=== PATIENT | female | born 1985 | race American Indian/Alaskan Native ===

== ENCOUNTER 2016-09-26 15:01 | Emergency (ER) | payer MEDICAID, OTHER ==
[2016-09-26 15:52] VITALS: BP 117/72
--- NOTE | 2016-09-26 16:31 | Emergency Department Report ---
Chief Complaint: Abdominal Pain Stated Complaint: ABDOMINAL PAIN (12WKS PREG) Time Seen by Provider: 09/26/16 16:28 - HPI History of Present Illness: She is a 31-year-old female presents to the ED complaining of low pelvic cramping. Patient states last menstrual period was 07/06/2016. Patient states she took a home test and believes she is . She denies fevers/ chills/nausea/vomiting/vaginal bleeding or discharge - ROS Review of Systems: As noted in HPI - Exam Vital Signs: Vital Signs 09/26/16 15:48 Temperature 98.4 F Pulse Rate 84 Respiratory 20 Rate Blood Pressure 117/72 O2 Sat by Pulse 100 Oximetry Physical Exam: GENERAL: Alert and oriented x3, no apparent distress, Normal Gait, atraumatic. ABDOMEN: No organomegaly was noted,Positive bowel sounds, soft, and non- distended. Mild tenderness to palpation of the right lower pelvic region. Nontender to palpation on all Quadrants, NO CVA tenderness. SKIN: Warm and dry, No lesions, No ulceration or induration present. MSE screening note: Focused history and physical exam performed. Due to findings the following was ordered: ED Medical Decision Making - Lab Data Result diagrams: 09/26/16 16:39 09/26/16 16:39 - Medical Decision Making Labs ordered. Ultrasound ordered. Patient to be seen by fast track provider. ED Disposition for MSE Condition: Stable Instructions: Abdominal Pain (ED)
[2016-09-26 17:10] LABS: Basophils % (Auto) 0.1 % (0.0-1.8); Hematocrit 38.1 % (30.3-42.9); Hemoglobin 12.7 gm/dl (10.1-14.3); Mean Corpuscular HGB Conc 33 % (30-34); Mean Corpuscular Hemoglobin 30 pg (28-32); Mean Corpuscular Volume 90 fl (79-97); Platelet Count 262 K/mm3 (140-440); Red Blood Count 4.23 M/mm3 (3.65-5.03); Red Cell Distribution Width 13.5 % (13.2-15.2); White Blood Count 9.9 K/mm3 (4.5-11.0)
[2016-09-26 17:20] LABS: Anion Gap 18 mmol/L; Blood Urea Nitrogen 12 mg/dL (7-17); Calcium 9.9 mg/dL (8.4-10.2); Carbon Dioxide 23 mmol/L (22-30); Chloride 96.8 mmol/L (98-107); Glucose 93 mg/dL (65-100); Potassium 4.1 mmol/L (3.6-5.0); Sodium 134 mmol/L (137-145)
--- NOTE | 2016-09-26 19:02 | Ultrasound Report ---
FINAL REPORT PROCEDURE: US OB \T\lt; = 14 WEEKS FETUS TECHNIQUE: Real-time transabdominal sonography of the uterus, placenta, amniotic fluid, adnexa, and fetus was performed with image documentation. Measurements were obtained to determine age/size. M-mode Doppler was used to document heartbeat. CPT 39666 HISTORY: Pelvic pain COMPARISON: No prior studies are available for comparison. FINDINGS: CRL: 65 mm, which corresponds to a gestational age of: 12 weeks, 6 days. Embryonic Cardiac Activity: 165 beats per minute Gestational Sac: Normal. Amniotic fluid: Normal. Cervix: Not well-visualized Right Ovary: Normal. Left Ovary: Normal. Estimated delivery date: 04/04/2017 IMPRESSION: Single live intrauterine gestation at approximately 12 weeks 6 days. EDC by US 04/04/2017
[2016-09-26 20:33] LABS: Alanine Aminotransferase 9 units/L (7-56); Albumin 4.3 g/dL (3.9-5); Albumin/Globulin Ratio 1.1 %; Alkaline Phosphatase 42 units/L (35-129); Amylase 129 units/L (27-131); Lipase 22 units/L (13-60); Total Protein 8.2 g/dL (6.3-8.2)
[2016-09-26 20:34] LABS: Bilirubin,Direct < 0.2 mg/dL (0-0.2); Bilirubin,Indirect 0.2 mg/dL
--- NOTE | 2016-09-26 20:50 | Emergency Department Report ---
ED Abdominal Pain HPI - General Chief Complaint: Abdominal Pain Stated Complaint: ABDOMINAL PAIN (12WKS PREG) Time Seen by Provider: 09/26/16 16:28 Source: patient Mode of arrival: Ambulatory Limitations: No Limitations - History of Present Illness Initial Comments: This is a 31-year-old female well-nourished with nontoxic or ill in appearance the patient to the ED complaining of 2 days. Patient stated she is to weeks . . Patient describes as intermittent with a level of a 7 out of 10. Patient denies any vaginal bleeding, pelvic pain, discharge, polyuria, dysuria, urgency, nausea, vomiting, chest pain, shortness of breath, diarrhea, constipation, fever, chills, stiff neck, headache, blurry vision. Patient denies any allergies. Last menstrual period 07/06/69. Denies Past medical history. Patient stated has her first appointment with her drawer in plain loom ([facility]) tomorrow. MD Complaint: other (abdominal cramping) -: Gradual, days(s) (2) Location: diffuse Radiation: none Severity: mild Severity scale (0 -10): 7 Quality: cramping Consistency: intermittent Improves With: nothing Worsens With: nothing Associated Symptoms: denies other symptoms. denies: nausea, vomiting, diarrhea , fever, chills, constipation, dysuria, hematemesis, hematochezia, melena, hematuria, anorexia, syncope - Related Data LMP Date: 07/06/16 Previous Rx's Medication Instructions Recorded Last Taken Type metroNIDAZOLE [Flagyl] 500 mg PO Q12HR 7 Days 09/26/16 Unknown Rx Allergies Allergy/AdvReac Type Severity Reaction Status Date / Time No Known Allergies Allergy Unverified 09/26/16 15:52 ED Review of Systems ROS: Stated complaint: ABDOMINAL PAIN (12WKS PREG) Other details as noted in HPI Constitutional: denies: chills, fever Eyes: denies: eye pain, eye discharge, vision change ENT: denies: ear pain, throat pain Respiratory: denies: cough, shortness of breath, wheezing Cardiovascular: denies: chest pain, palpitations Endocrine: no symptoms reported Gastrointestinal: denies: abdominal pain, nausea, diarrhea Genitourinary: denies: urgency, dysuria, discharge Musculoskeletal: denies: back pain, joint swelling, arthralgia Skin: denies: rash, lesions Neurological: denies: headache, weakness, paresthesias Psychiatric: denies: anxiety, depression Hematological/Lymphatic: denies: easy bleeding, easy bruising ED Past Medical Hx - Past Medical History Previous Medical History?: No - Surgical History Past Surgical History?: No - Social History Smoking Status: Former Smoker Substance Use Type: None - Medications Home Medications: Home Medications Medication Instructions Recorded Confirmed Last Taken Type metroNIDAZOLE [Flagyl] 500 mg PO Q12HR 7 Days 09/26/16 Unknown Rx ED Physical Exam - General Limitations: No Limitations General appearance: alert, in no apparent distress - Head Head exam: Present: atraumatic, normocephalic, normal inspection - Eye Eye exam: Present: normal appearance, PERRL, EOMI. Absent: scleral icterus, conjunctival injection, nystagmus, periorbital swelling, periorbital tenderness Pupils: Present: normal accommodation - ENT ENT exam: Present: normal exam, normal orophraynx, mucous membranes moist, TM's normal bilaterally, normal external ear exam - Neck Neck exam: Present: normal inspection, full ROM. Absent: tenderness, meningismus, lymphadenopathy, thyromegaly - Respiratory Respiratory exam: Present: normal lung sounds bilaterally. Absent: respiratory distress, wheezes, rales, rhonchi, stridor, chest wall tenderness, accessory muscle use, decreased breath sounds, prolonged expiratory - Cardiovascular Cardiovascular Exam: Present: regular rate, normal rhythm, normal heart sounds. Absent: bradycardia, tachycardia, irregular rhythm, systolic murmur, diastolic murmur, rubs, gallop - GI/Abdominal GI/Abdominal exam: Present: soft, normal bowel sounds. Absent: distended, tenderness, guarding, rebound, rigid, diminished bowel sounds, organomegaly - Expanded GI/Abdominal Exam Expanded GI/Abdominal exam: Absent: psoas sign, obturator sign, heel tap sign, Oden's sign, Rovsing's sign, tenderness at Mcburney's Point, ascites - Rectal Rectal exam: Present: deferred, normal rectal tone (as per patient) - External exam: Present: normal external exam, other (stationary fireman present during exam). Absent: erythema, swelling, lesions, lacerations, ecchymosis, bleeding Speculum exam: Present: normal speculum exam, other (OS closed. Geophysical Support Specialist present during exam.). Absent: erythema, vaginal discharge, cervical discharge , vaginal bleeding, foreign body, tissue, laceration Bi-manual exam: Present: normal bi-manual exam. Absent: cervical motion tendernes, adnexal tenderness, adnexal mass, uterine enlargement, uterine tenderness - Extremities Exam Extremities exam: Present: normal inspection, full ROM, normal capillary refill. Absent: tenderness, pedal edema, joint swelling, calf tenderness - Back Exam Back exam: Present: normal inspection, full ROM. Absent: tenderness, CVA tenderness (R), CVA tenderness (L), muscle spasm, paraspinal tenderness, vertebral tenderness, rash noted - Neurological Exam Neurological exam: Present: alert, oriented X3, CN II-XII intact, normal gait, reflexes normal - Psychiatric Psychiatric exam: Present: normal affect, normal mood - Skin Skin exam: Present: warm, dry, intact, normal color. Absent: rash ED Course Vital Signs 09/26/16 15:48 Temperature 98.4 F Pulse Rate 84 Respiratory 20 Rate Blood Pressure 117/72 O2 Sat by Pulse 100 Oximetry - Reevaluation(s) Reevaluation #1: 09/26/16 20:52 Patient is resting comfortably with no signs of distress noted. ED Medical Decision Making - Lab Data Result diagrams: 09/26/16 16:39 09/26/16 16:39 - Medical Decision Making ED course; this is a 31-year-old female that presents with intermittent abdominal cramping 1- patient was examined by myself. Upon exam of cervix OS is closed with no signs of vaginal bleeding or cervical bleeding. No discharge. 2- ultrasound has been obtained. Dictated by Dr. Carrizales. Impression; single live intrauterine gestation at approximately 12 weeks 6 days. Estimated date by ultrasound . 165 bpm for heart rate. 3- patient was notified of the results of ultrasound. With no further questions noted. 4- patient was instructed to follow-up with her FILLER SHREDDER MACHINE that she has appointment for tomorrow or if symptoms such as vaginal bleeding, abdominal pain, nausea or vomiting, Chest pain, or shortness of breathe returns emergency room as was possible. 5- at time time of discharge, the patient does not seem toxic or ill in appearance. No acute signs of distress noted. Patient agrees to discharge treatment plan of care. No further questions noted by the patient. 6- a wet prep and Chlamydia/gonorrhea has been obtained and sent to lab. 7- blood prep indicates pectoral vaginosis. Patient received Flagyl for 7 days Critical care attestation.: If time is entered above; I have spent that time in minutes in the direct care of this critically ill patient, excluding procedure time. ED Disposition Clinical Impression: Abdominal cramping, Bacterial vaginosis Qualifiers: Weeks of gestation: 12 weeks Qualified Code(s): Z3A.12 - 12 weeks gestation of Disposition: - TO HOME OR SELFCARE Is pt being admited?: No Does the pt Need Aspirin: No Condition: Stable Instructions: (ED), Abdominal Pain in (ED), Bacterial Vaginosis (ED) Additional Instructions: Follow-up with your FILLER SHREDDER MACHINE that she has appointment for tomorrow or if symptoms such as vaginal bleeding, abdominal pain, nausea or vomiting, Chest pain, or shortness of breathe returns emergency room as was possible. Follow-up with medical records in 5 days to obtain results of gonorrhea/ chlamydia Finish full course of antibiotics as prescribed Prescriptions: metroNIDAZOLE [Flagyl] 500 mg PO Q12HR 7 Days Referrals: PRIMARY CAREMD [Primary Care Provider] - 24 Hours [facility] [Outside] - 3-5 Days [facility] [Outside] - 3-5 Days [facility] [Provider Group] - 3-5 Days DIA GOETZ MD [Staff Physician] - 24 Hours Forms: Work/School Release Form(ED), STI Treatment and Prevention
== END 2016-09-26 22:37 | disposition home or self-care (01) ==
LOC: ED 15:01
DX: O23.591 Infection of other part of genital tract in pregnancy, first trimester (principal); N76.0 Acute vaginitis; O99.331 Smoking (tobacco) complicating pregnancy, first trimester; Z3A.12 12 weeks gestation of pregnancy
CPT/HCPCS: 36415; 76801; 80048; 80074; 82150; 83690; 84702; 84703; 85025; 87210; 87591

== ENCOUNTER 2018-12-30 21:24 | Emergency (ER) | payer MEDICAID, OTHER ==
[2018-12-31] MEDS ORDERED: TORADOL IM ONE (01:04)
[2018-12-31 02:18] LABS: Basophils % (Auto) 0.2 % (0.0-1.8); Eosinophils # (Auto) 0.5 K/mm3 (0.0-0.4); Eosinophils % (Auto) 5.9 % (0.0-4.3); Hematocrit 37.3 % (30.3-42.9); Hemoglobin 12.6 gm/dl (10.1-14.3); Lymphocytes # (Auto) 3.7 K/mm3 (1.2-5.4); Lymphocytes % (Auto) 43.7 % (13.4-35.0); Mean Corpuscular HGB Conc 34 % (30-34); Mean Corpuscular Volume 89 fl (79-97); Monocytes # (Auto) 0.6 K/mm3 (0.0-0.8); Monocytes % (Auto) 6.8 % (0.0-7.3); Platelet Count 300 K/mm3 (140-440); Red Cell Distribution Width 13.1 % (13.2-15.2)
[2018-12-31 02:32] LABS: Alanine Aminotransferase 11 units/L (7-56); Albumin 3.7 g/dL (3.9-5); BUN/Creatinine Ratio 28; Blood Urea Nitrogen 17 mg/dL (7-17); Calcium 8.7 mg/dL (8.4-10.2); Hemolysis Index 3
[2018-12-31] MEDS ORDERED: ROCEPHIN IM ONE (04:57)
[2018-12-31] MEDS ORDERED: ZITHROMAX PO ONE (04:57)
[2018-12-31] MEDS ORDERED: XYLOCAINE 1% MPF 5 mL INFILTRATI ONE (04:57)
[2018-12-31 05:21] LABS: Bacteria,Urine 1+ /HPF (Negative); Bilirubin,Urine NEG (Negative); Blood,Urine SM (Negative); Color,Urine Yellow (Yellow); Mucus,Urine 3+ /HPF
--- NOTE | 2018-12-31 06:10 | Emergency Department Report ---
ED Abdominal Pain HPI - General Chief Complaint: Abdominal Pain Stated Complaint: STOMACH PAIN Source: patient Mode of arrival: Ambulatory Limitations: No Limitations - History of Present Illness Initial Comments: Patient is a 33-year-old -[place] female with no past medical history presents to the ED with complaint of acute onset persistent suprapubic pain, dysuria, urinary frequency and urgency, vaginal discharge for the last 1 month, worse in the last 2 days. Patient denies dizziness, fever, chills, nausea, vomiting, diarrhea, dyspareunia, headache, chest pain or shortness of breath, or low back pain. MD Complaint: abdominal pain, other (vaginal discharge, dysuria) -: Gradual, month(s) (1) Location: suprapubic Radiation: suprapubic Migration to: no migration Severity scale (0 -10): 4 Quality: cramping, aching, sharp Consistency: constant Improves With: nothing Worsens With: nothing Associated Symptoms: denies other symptoms. denies: nausea, vomiting, diarrhea, fever, chills, constipation, hematemesis, hematochezia, melena, anorexia - Related Data Previous Rx's Medication Instructions Recorded Last Taken Type metroNIDAZOLE [Flagyl] 500 mg PO Q12HR 7 Days tab 09/26/16 Unknown Rx Acetaminophen/Codeine [Tylenol 1 tab PO Q6H PRN #12 tab 12/31/18 Unknown Rx /Codeine # 3 tab] DOXYCYCLINE Hyclate [Vibramycin 100 mg PO Q12HR #20 capsule 12/31/18 Unknown Rx CAP] Ibuprofen [Motrin] 800 mg PO Q8HR PRN #24 tablet 12/31/18 Unknown Rx Ondansetron [Zofran Odt] 4 mg PO Q6HR PRN #15 tab.rapdis 12/31/18 Unknown Rx cephALEXin [Keflex] 500 mg PO Q8HR #30 cap 12/31/18 Unknown Rx metroNIDAZOLE [Flagyl] 500 mg PO Q12HR #14 tab 12/31/18 Unknown Rx Allergies Allergy/AdvReac Type Severity Reaction Status Date / Time No Known Allergies Allergy Verified 12/30/18 21:28 ED Review of Systems ROS: Stated complaint: STOMACH PAIN Other details as noted in HPI Constitutional: denies: chills, fever Eyes: denies: eye pain, eye discharge, vision change ENT: denies: ear pain, throat pain Respiratory: denies: cough, shortness of breath, wheezing Cardiovascular: denies: chest pain, palpitations Endocrine: no symptoms reported Gastrointestinal: abdominal pain. denies: nausea, diarrhea Genitourinary: urgency, dysuria, frequency, discharge Musculoskeletal: denies: back pain, joint swelling, arthralgia Skin: denies: rash, lesions Neurological: denies: headache, weakness, paresthesias Psychiatric: denies: anxiety, depression Hematological/Lymphatic: denies: easy bleeding, easy bruising ED Past Medical Hx - Social History Smoking Status: Former Smoker Substance Use Type: None - Medications Home Medications: Home Medications Medication Instructions Recorded Confirmed Last Taken Type metroNIDAZOLE [Flagyl] 500 mg PO Q12HR 7 Days tab 09/26/16 Unknown Rx Acetaminophen/Codeine [Tylenol 1 tab PO Q6H PRN #12 tab 12/31/18 Unknown Rx /Codeine # 3 tab] DOXYCYCLINE Hyclate [Vibramycin 100 mg PO Q12HR #20 capsule 12/31/18 Unknown Rx CAP] Ibuprofen [Motrin] 800 mg PO Q8HR PRN #24 tablet 12/31/18 Unknown Rx Ondansetron [Zofran Odt] 4 mg PO Q6HR PRN #15 tab.rapdis 12/31/18 Unknown Rx cephALEXin [Keflex] 500 mg PO Q8HR #30 cap 12/31/18 Unknown Rx metroNIDAZOLE [Flagyl] 500 mg PO Q12HR #14 tab 12/31/18 Unknown Rx ED Physical Exam - General Limitations: No Limitations General appearance: alert, in no apparent distress - Head Head exam: Present: atraumatic, normocephalic, normal inspection - Eye Eye exam: Present: normal appearance, PERRL, EOMI Pupils: Present: normal accommodation - ENT ENT exam: Present: normal exam, normal orophraynx, mucous membranes moist, TM's normal bilaterally, normal external ear exam - Neck Neck exam: Present: normal inspection, full ROM - Respiratory Respiratory exam: Present: normal lung sounds bilaterally. Absent: respiratory distress, wheezes, rales, chest wall tenderness, prolonged expiratory - Cardiovascular Cardiovascular Exam: Present: normal rhythm, bradycardia, normal heart sounds. Absent: systolic murmur, diastolic murmur, rubs, gallop - GI/Abdominal GI/Abdominal exam: Present: soft, tenderness (palpable suprapubic tenderness, no guarding), normal bowel sounds. Absent: guarding, rebound, hyperactive bowel sounds - Speculum exam: Present: vaginal discharge, cervical discharge, vaginal bleeding Bi-manual exam: Present: cervical motion tendernes, other (female RN donor relations officer, Nena present in the pelvic exam.) - Extremities Exam Extremities exam: Present: normal inspection, full ROM, normal capillary refill - Back Exam Back exam: Present: normal inspection - Neurological Exam Neurological exam: Present: alert, oriented X3 - Psychiatric Psychiatric exam: Present: normal affect, normal mood - Skin Skin exam: Present: warm, dry, intact, normal color. Absent: rash ED Course Vital Signs 12/30/18 22:23 Temperature 97.9 F Pulse Rate 58 L Respiratory 18 Rate Blood Pressure 147/94 [Right] O2 Sat by Pulse 100 Oximetry - Reevaluation(s) Reevaluation #1: 12/31/18 06:07 This is a 33-year-old female who presented to the ED with suprapubic pain for one month with dysuria, vaginal discharge, urinary frequency and urgency. In the ED, patient is alert and oriented 3 and is not in distress. Lab test results were reviewed and are nonactionable except urinalyses that showed acute urinary tract infection, also pelvic exam showed presence of 2 cells suggestive of bacterial vaginosis. Pelvic exam was positive for cervical motion tenderness characteristic or pelvic inflammatory disease. Patient was treated in the ED and discharged home on antibiotics and pain medications. Patient was advised to follow-up with her TIME MOTION ANALYST physician or primary care physician in 5-7 days for reevaluation. Vision was advised to return to the ED immediately if symptoms get worse. ED Medical Decision Making - Lab Data Result diagrams: 12/31/18 01:42 12/31/18 01:42 - Medical Decision Making This is a 33-year-old female who presented to the ED with suprapubic pain for one month with dysuria, vaginal discharge, urinary frequency and urgency. In the ED, patient is alert and oriented 3 and is not in distress. Lab test resu lts were reviewed and are nonactionable except urinalyses that showed acute urinary tract infection, also pelvic exam showed presence of 2 cells suggestive of bacterial vaginosis. Pelvic exam was positive for cervical motion tenderness characteristic or pelvic inflammatory disease. Patient was treated in the ED and discharged home on antibiotics and pain medications. Patient was advised to follow-up with her TIME MOTION ANALYST physician or primary care physician in 5-7 days for reevaluation. Vision was advised to return to the ED immediately if symptoms get worse. - Differential Diagnosis PID; UTI; STD; Uterine fibroids; Dysmenorrheaa Critical care attestation.: If time is entered above; I have spent that time in minutes in the direct care of this critically ill patient, excluding procedure time. ED Disposition Clinical Impression: Acute pelvic inflammatory disease (PID), Acute urinary tract infection, Bacterial vaginosis Disposition: TO HOME OR SELFCARE Is pt being admited?: No Does the pt Need Aspirin: No Condition: Stable Instructions: Abdominal Pain (ED), Bacterial Vaginosis (ED), Pelvic Inflammatory Disease (ED) Additional Instructions: Take pain medication with food, drink plenty of fluids and follow-up with your primary care physician in 7-10 days for reevaluation. Consider following up with your TIME MOTION ANALYST physician 7-10 days as well. Return to the ED immediately if symptoms get worse. Prescriptions: metroNIDAZOLE [Flagyl] 500 mg PO Q12HR #14 tab cephALEXin [Keflex] 500 mg PO Q8HR #30 cap Ibuprofen [Motrin] 800 mg PO Q8HR PRN #24 tablet PRN Reason: Pain , Severe (7-10) Acetaminophen/Codeine [Tylenol /Codeine # 3 tab] 1 tab PO Q6H PRN #12 tab PRN Reason: Pain , Severe (7-10) DOXYCYCLINE Hyclate [Vibramycin CAP] 100 mg PO Q12HR #20 capsule Ondansetron [Zofran Odt] 4 mg PO Q6HR PRN #15 tab.rapdis PRN Reason: Nausea Referrals: PRIMARY CARE, [Primary Care Provider] - 3-5 Days Forms: STI Treatment and Prevention Time of Disposition: 06:04 Print Language: BURMESE
[2018-12-31 06:16] VITALS: BP 148/101
== END 2018-12-31 06:16 | disposition home or self-care (01) ==
LOC: ED 21:24
DX: N73.9 Female pelvic inflammatory disease, unspecified (principal); N39.0 Urinary tract infection, site not specified; N76.0 Acute vaginitis; B96.89 Other specified bacterial agents as the cause of diseases classified elsewhere
CPT/HCPCS: 36415; 80053; 81001; 83690; 84703; 85025; 87086; 87210; 87591; 96372; 99284; J0696; J1885

== ENCOUNTER 2021-03-06 10:42 | Emergency (ER) | payer SELFPAY ==
[2021-03-06 11:21] VITALS: BP 152/103
--- NOTE | 2021-03-06 11:36 | Emergency Department Report ---
Upper Extremity - [facility] Chief Complaint: Extremity Injury, Upper Stated Complaint: LFT ARM PAIN Occurred When: >5 Days Mechanism: Unsure Severity: mild Symptoms: Yes Pain with Movement (Certain movements), No Deformity, No Limited Range of Movement, No Numbness, No Weakness, No Swelling, No Bruising/Ecchymosis, No Laceration or Abrasion ED Review of Systems ROS: Stated complaint: LFT ARM PAIN Other details as noted in HPI ED Past Medical Hx - Social History Smoking Status: Former Smoker Substance Use Type: None - Medications Home Medications: Home Medications Medication Instructions Recorded Confirmed Last Taken Type metroNIDAZOLE [Flagyl] 500 mg PO Q12HR 7 Days tab 09/26/16 Unknown Rx Acetaminophen/Codeine [Tylenol 1 tab PO Q6H PRN #12 tab 12/31/18 Unknown Rx /Codeine # 3 tab] DOXYCYCLINE Hyclate [Vibramycin 100 mg PO Q12HR #20 capsule 12/31/18 Unknown Rx CAP] Ibuprofen [Motrin] 800 mg PO Q8HR PRN #24 tablet 12/31/18 Unknown Rx Ondansetron [Zofran Odt] 4 mg PO Q6HR PRN #15 tab.rapdis 12/31/18 Unknown Rx cephALEXin [Keflex] 500 mg PO Q8HR #30 cap 12/31/18 Unknown Rx metroNIDAZOLE [Flagyl] 500 mg PO Q12HR #14 tab 12/31/18 Unknown Rx Diclofenac Sodium [Voltaren 20 gm TP TID PRN #20 gel..gram. 03/06/21 Unknown Rx Arthritis Pain] Ibuprofen [Motrin 800 MG tab] 800 mg PO Q8HR PRN #21 tablet 03/06/21 Unknown Rx Upper Extremity Exam - Exam General: Vital signs noted. No distress. Alert and acting appropriately. Head and Torso: No HEENT Abnormality, No Neck Tenderness, No Chest/Lungs Abnormality, No Abdominal Tenderness, No Back Tenderness Shoulder Exam: Yes Normal Range of Motion in Shoulder, No Shoulder Tenderness, No Clavicle Tenderness, No Shoulder Deformity, No AC Joint Tenderness Arm Exam: No Arm/Humerus Tenderness, No Arm Deformity Elbow: Yes Normal Range of Motion in Elbow, No Elbow Tenderness, No Elbow Deformity Forearm: Yes Forearm Tenderness, No Forearm Deformity, No Pain with Pronation, No Pain with Supination Wrist: Yes Normal ROM in Wrist, No Wrist Tenderness, No Wrist Deformity, No Snuffbox Tenderness, No Pain with Axial Thumb Compression Hand: Yes Normal ROM in Digit(s), No Hand Tenderness, No Hand Deformity, No Digit Tenderness, No Digit(s) Deformity, No Tendon Dysfunction CMS Exam: No Broken Skin, No Normal Distal Pulses, No Normal Capillary Refill, No Normal Distal Sensation ED Course Vital Signs 03/06/21 11:20 Temperature 98.7 F Pulse Rate 72 Respiratory 20 Rate Blood Pressure 152/103 [Right] O2 Sat by Pulse 98 Oximetry Critical care attestation.: If time is entered above; I have spent that time in minutes in the direct care of this critically ill patient, excluding procedure time. ED Disposition Clinical Impression: Left arm pain Disposition: HOME / SELF CARE / HOMELESS Is pt being admited?: No Does the pt Need Aspirin: No Condition: Stable Instructions: Pain Without a Known Cause Additional Instructions: Recommend ibuprofen and Voltaren gel. Increase your fluid intake advance your diet as tolerated. Prescriptions: Ibuprofen [Motrin 800 MG tab] 800 mg PO Q8HR PRN #21 tablet PRN Reason: Pain , Severe (7-10) Diclofenac Sodium [Voltaren Arthritis Pain] 20 gm TP TID PRN #20 gel..gram. PRN Reason: Pain , Severe (7-10) Referrals: HARPER NAJERA MD [Staff Physician] - 3-5 Days Forms: Work/School Release Form(ED) Time of Disposition: 11:36
== END 2021-03-06 12:01 | disposition home or self-care (01) ==
LOC: ED 10:42
DX: M79.602 Pain in left arm (principal); Z87.891 Personal history of nicotine dependence
CPT/HCPCS: 99282